=== PATIENT | female | born 1975 | race Caucasian/White ===

== ENCOUNTER → 2019-05-13 | Outpatient (CLI) | payer OTHER | LOC: COL.RAD 09:24 | DX: R10.2 Pelvic and perineal pain (principal) ==

== ENCOUNTER → 2019-09-10 | Outpatient (CLI) | payer OTHER | LOC: COL.RAD 08:33 | DX: N28.1 Cyst of kidney, acquired (principal) | CPT/HCPCS: Q9967 ==